=== PATIENT | female | born 1935 | race Caucasian/White ===

== ENCOUNTER 2016-08-17 10:16 | Emergency (ER) | payer OTHER ==
[~2016-08-17] VITALS: Ht 165.1 cm; Wt 71.8 kg
[~2016-08-17 10:16] MED LIST: DET1; DEXILANT; DIO80; L40I; L40I IV; SYN15; SYN25; SYNTHROID0.05 MG PO; TOP50
[2016-08-17 11:31] LABS: BASOPHIL % 0.4 % (0-2); PLATELET COUNT 324 x10^3mcL (130-400); RED CELL DISTRIBUTION WIDTH 13.4 % (11.5-14.5)
[2016-08-17 11:57] LABS: ALBUMIN 3.8 g/dL (3.4-5.0); ALKALINE PHOSPHATASE 74 U/L (46-116); ALT/SGPT 18 U/L (14-59); AST/SGOT 20 U/L (15-37); BILIRUBIN TOTAL 0.55 mg/dL (0.20-1.00); CALCIUM 10.8 mg/dL (8.5-10.1); CARBON DIOXIDE 29.1 mmol/L (21-32); CHLORIDE SERUM 100 mmol/L (98-107); CREATININE SERUM 1.4 mg/dL (0.6-1.0); GLUCOSE SERUM 118 mg/dL (74-106); HDL CHOLESTEROL 50 mg/dL (40-60); MAGNESIUM 2.1 mg/dL (1.8-2.4); POTASSIUM SERUM 3.8 mmol/L (3.5-5.1); SODIUM SERUM 136 mmol/L (136-145); T4(THYROXINE) 7.2 ug/dL (4.7-13.3); TOTAL PROTEIN, SERUM 7.8 g/dL (6.4-8.2)
[2016-08-17 11:58] LABS: CHOLESTEROL 249 mg/dL (<200)
[2016-08-17 12:46] VITALS: BP 112/76
== END 2016-08-17 12:46 | disposition home or self-care (01) ==
LOC: ED 10:16
PROVIDERS: Emergency Medicine
DX: R53.1 Weakness (principal); J20.9 Acute bronchitis, unspecified; E86.0 Dehydration; I10 Essential (primary) hypertension; E07.9 Disorder of thyroid, unspecified; Z86.73 Personal history of transient ischemic attack (TIA), and cerebral infarction without residual deficits; Z86.79 Personal history of other diseases of the circulatory system; Z87.11 Personal history of peptic ulcer disease
CPT/HCPCS: 83880

== ENCOUNTER 2016-08-23 11:18 | Inpatient (IN) | payer OTHER ==
[~2016-08-23] VITALS: Ht 165.1 cm; Wt 73.0 kg
[~2016-08-23 11:18] MED LIST changes: -DIO80; +DIO80 PO
[2016-08-23 13:17] LABS: BASOPHIL % 0.5 % (0-2); PLATELET COUNT 315 x10^3mcL (130-400); RED CELL DISTRIBUTION WIDTH 13.7 % (11.5-14.5)
[2016-08-23 13:38] LABS: ALBUMIN 3.8 g/dL (3.4-5.0); ALKALINE PHOSPHATASE 70 U/L (46-116); ALT/SGPT 12 U/L (14-59); AST/SGOT 21 U/L (15-37); BILIRUBIN TOTAL 0.82 mg/dL (0.20-1.00); CALCIUM 10.2 mg/dL (8.5-10.1); CARBON DIOXIDE 23.4 mmol/L (21-32); CHLORIDE SERUM 102 mmol/L (98-107); CREATININE SERUM 1.1 mg/dL (0.6-1.0); GLUCOSE SERUM 101 mg/dL (74-106); HDL CHOLESTEROL 60 mg/dL (40-60); POTASSIUM SERUM 4.1 mmol/L (3.5-5.1); SODIUM SERUM 135 mmol/L (136-145); TOTAL PROTEIN, SERUM 7.5 g/dL (6.4-8.2)
[2016-08-23 13:39] LABS: CHOLESTEROL 252 mg/dL (<200)
[2016-08-23 16:07] LABS: PHOSPHOROUS 3.3 mg/dL (2.5-4.9)
[2016-08-23 16:10] LABS: MAGNESIUM 2.3 mg/dL (1.8-2.4)
[2016-08-23 16:12] LABS: T3 TOTAL 0.75 ng/mL
[2016-08-23 16:16] LABS: CHOLESTEROL/HDL RATIO 4.3
[2016-08-23 16:17] LABS: FREE T4 1.12 ng/dL (0.76-1.46); FREE THYROXINE INDEX 2.3 ug/dL (1.4-4.5); T4(THYROXINE) 6.6 ug/dL (4.7-13.3)
[2016-08-23 16:40] VITALS: BP 161/70
[2016-08-23 22:10] VITALS: BP 134/61
[2016-08-24 06:54] VITALS: BP 159/63
[2016-08-24 07:38] LABS: CALCIUM 9.7 mg/dL (8.5-10.1); CHLORIDE SERUM 106 mmol/L (98-107); CREATININE SERUM 1.1 mg/dL (0.6-1.0); GLUCOSE SERUM 104 mg/dL (74-106); MAGNESIUM 2.8 mg/dL (1.8-2.4); PHOSPHOROUS 2.1 mg/dL (2.5-4.9); POTASSIUM SERUM 4.2 mmol/L (3.5-5.1); SODIUM SERUM 140 mmol/L (136-145)
[2016-08-24 07:43] LABS: BASOPHIL % 0.2 % (0-2); PLATELET COUNT 293 x10^3mcL (130-400); RED CELL DISTRIBUTION WIDTH 13.4 % (11.5-14.5)
[2016-08-24 10:30] VITALS: BP 156/59
[2016-08-24 12:41] LABS: microscopic required? YES; urine erythrocyte 1+ (NEGATIVE)
[2016-08-24 12:50] LABS: AMPHETAMINE QUAL UR NONE DETECTED (NEG <=1000)
[2016-08-24 13:43] VITALS: BP 138/72
[2016-08-24 17:41] VITALS: BP 138/62
[2016-08-24 21:37] VITALS: BP 147/61
[2016-08-25 05:34] VITALS: BP 140/72
[2016-08-25 06:37] LABS: BASOPHIL % 0.6 % (0-2); PLATELET COUNT 236 x10^3mcL (130-400); RED CELL DISTRIBUTION WIDTH 13.4 % (11.5-14.5)
[2016-08-25 06:41] LABS: CALCIUM 9.5 mg/dL (8.5-10.1); CHLORIDE SERUM 107 mmol/L (98-107); GLUCOSE SERUM 96 mg/dL (74-106); MAGNESIUM 2.2 mg/dL (1.8-2.4); PHOSPHOROUS 2.4 mg/dL (2.5-4.9); POTASSIUM SERUM 3.6 mmol/L (3.5-5.1); SODIUM SERUM 139 mmol/L (136-145)
[2016-08-25 09:00] VITALS: BP 171/61
[2016-08-25] MEDS ORDERED: PREPARATION H HYDR1% TP (10:56)
[2016-08-25 11:46] VITALS: BP 154/69
== END 2016-08-25 13:27 | disposition home or self-care (01) | DRG 344 ==
LOC: ED 11:18 → DU 15:13
PROVIDERS: Emergency Medicine; ADMIT Family Medicine
PROC: 0D9P0ZZ Drainage of Rectum, Open Approach (ICD-10-PCS; principal; 2016-08-23)
DX: K64.5 Perianal venous thrombosis (principal); N17.0 Acute kidney failure with tubular necrosis; J20.9 Acute bronchitis, unspecified; K56.41 Fecal impaction; E86.0 Dehydration; E03.9 Hypothyroidism, unspecified; I10 Essential (primary) hypertension; M19.90 Unspecified osteoarthritis, unspecified site; Z68.26 Body mass index [BMI] 26.0-26.9, adult
CPT/HCPCS: 82962; 83880; 84439; J0696; J0744; J1940; J2001; J2405; J3010; J3490; J7030; J7613; Q0092

== ENCOUNTER 2018-03-15 13:56 | Inpatient (IN) | payer OTHER ==
[~2018-03-15] VITALS: Ht 172.7 cm; Wt 59.0 kg
[~2018-03-15 13:56] MED LIST changes: +PREPARATION H HYDR1% TP
[2018-03-15 14:03] VITALS: Ht 172.7 cm; Wt 59.0 kg
[2018-03-15 14:47] LABS: BASOPHIL % 0.6 % (0-2); PLATELET COUNT 400 x10^3mcL (130-400); RED CELL DISTRIBUTION WIDTH 13.8 % (11.5-14.5)
[2018-03-15 14:51] LABS: CALCIUM 10.4 mg/dL (8.5-10.1); CHLORIDE SERUM 95 mmol/L (98-107); CREATININE SERUM 0.8 mg/dL (0.6-1.0); GLUCOSE SERUM 130 mg/dL (74-106); POTASSIUM SERUM 4.2 mmol/L (3.5-5.1); SODIUM SERUM 129 mmol/L (136-145)
[2018-03-15 14:56] LABS: ALBUMIN 3.3 g/dL (3.4-5.0); ALKALINE PHOSPHATASE 65 U/L (46-116); ALT/SGPT 20 U/L (14-59); AST/SGOT 19 U/L (15-37); BILIRUBIN TOTAL 0.5 mg/dL (0.20-1.00); TOTAL PROTEIN, SERUM 7.4 g/dL (6.4-8.2)
[2018-03-15] MEDS ORDERED: CARVEDILOL3.125 M1 PO (16:21)
[2018-03-15] MEDS ORDERED: PLA75 PO (16:22)
[2018-03-15] MEDS ORDERED: LEADER C1 TAB PO (16:22)
[2018-03-15] MEDS ORDERED: PANTOPRAZOLE SO40 M1 PO (16:22)
[2018-03-15] MEDS ORDERED: LIPI20 PO (16:23)
[2018-03-15] MEDS ORDERED: ASPIR 8181 MG PO (16:23)
[2018-03-15] MEDS ORDERED: TRAMADOL HCL50 MG PO (16:23)
[2018-03-15] MEDS ORDERED: PHENAZOPYRIDIN200 M3 PO (16:24)
[2018-03-15] MEDS ORDERED: POTASSIUM GLUC500 MG PO (16:24)
[2018-03-15 17:51] VITALS: BP 150/61
[2018-03-15 20:55] VITALS: BP 166/56
[2018-03-16 05:58] VITALS: BP 154/60
[2018-03-16 06:52] LABS: BASOPHIL % 0.5 % (0-2); PLATELET COUNT 348 x10^3mcL (130-400); RED CELL DISTRIBUTION WIDTH 13.7 % (11.5-14.5)
[2018-03-16 07:08] LABS: CALCIUM 10.2 mg/dL (8.5-10.1); CHLORIDE SERUM 99 mmol/L (98-107); CREATININE SERUM 0.7 mg/dL (0.6-1.0); GLUCOSE SERUM 110 mg/dL (74-106); POTASSIUM SERUM 3.9 mmol/L (3.5-5.1); SODIUM SERUM 133 mmol/L (136-145)
[2018-03-16 09:39] VITALS: BP 154/70
[2018-03-16 13:06] VITALS: BP 143/74
== END 2018-03-16 15:36 | disposition home health service (06) | DRG 150 ==
LOC: ED 13:56 → DU 16:02
PROVIDERS: Emergency Medicine; Internal Medicine
PROC: 093K7ZZ Control Bleeding in Nasal Mucosa and Soft Tissue, Via Natural or Artificial Opening (ICD-10-PCS; principal; 2018-03-15)
DX: R04.0 Epistaxis (principal); G93.41 Metabolic encephalopathy; N17.9 Acute kidney failure, unspecified; E87.1 Hypo-osmolality and hyponatremia; R40.4 Transient alteration of awareness; F03.90 Unspecified dementia, unspecified severity, without behavioral disturbance, psychotic disturbance, mood disturbance, and anxiety; D64.9 Anemia, unspecified; I10 Essential (primary) hypertension
CPT/HCPCS: 97110-GP; 97112-GP; J3010; J7030; Q0092